=== PATIENT | female | born 1975 | race African-American/Black ===

== ENCOUNTER 2017-03-18 23:40 | Emergency (ER) | payer OTHER ==
[~2017-03-18] VITALS: Ht 165.1 cm; Wt 104.4 kg
[~2017-03-18 23:40] MED LIST: CLINDAMYCIN HC300 MG PO; DOXYCYCLINE HY100 MG PO; Motrin PO; NOHOMEMEDS; ROBITUSSIN AC,T10 ML PO; XANAX0.5 MG PO
[2017-03-19 00:15] LABS: HEMATOCRIT 43.3 % (36.0-46.0); MCH 30.7 PG (29.0-34.0); MCHC 35.1 G/DL (30.0-36.0); MCV 87.5 FL (83-99); MEAN PLAT.VOLUME 10.3 uM^3 (9.5-12.4); PLATELET COUNT 306 K/uL (156-360); RBC DIS.WIDTH-SD 41.4 % (39-53); RED BLOOD COUNT 4.95 M/uL (3.80-5.20); WHITE BLOOD COUNT 5.8 K/uL (4.1-10.2)
[2017-03-19 00:23] LABS: CHLORIDE 107 mEq/L (99-109); POTASSIUM 3.3 mEq/L (3.7-5.4); SODIUM 142 mEq/L (136-147)
[2017-03-19 00:25] LABS: GLUCOSE 95 mg/dL (70-99)
[2017-03-19 00:27] LABS: ANION GAP 20 MEQ/L (2-14)
[2017-03-19 00:29] LABS: GFR ESTIMATE (CALCULATED) > 59 mL/min/
[2017-03-19 00:30] LABS: UREA NITROGEN (BUN) 4 mg/dL (9-23)
[2017-03-19 00:36] LABS: TROP-I INTERPRETATION NEGATIVE; TROPONIN-I < 0.01 ng/mL (0.0-0.30)
[2017-03-19 03:17] LABS: D-DIMER ELISA < 150.00 ng/mLDDU (<230)
[2017-03-19 03:29] LABS: TROP-I INTERPRETATION NEGATIVE; TROPONIN-I < 0.01 ng/mL (0.0-0.30)
[2017-03-19 04:08] VITALS: BP 138/80
== END 2017-03-19 04:08 | disposition home or self-care (01) ==
LOC: EME 23:40
PROVIDERS: Emergency Medicine
DX: R07.9 Chest pain, unspecified (principal); F17.200 Nicotine dependence, unspecified, uncomplicated
CPT/HCPCS: 71020; 80048; 84484; 85027; 85379; 93005; 99281; 99284

== ENCOUNTER 2017-06-04 07:52 | Emergency (ER) | payer OTHER ==
[~2017-06-04] VITALS: Ht 165.1 cm; Wt 104.5 kg
[2017-06-04 08:42] LABS: BASOPHIL (%) 0.4 % (0-1); EOSINOPHIL (%) 1.3 % (0-5); EOSINOPHIL COUNT 0.1 K/uL (0-0.3); HEMATOCRIT 41.6 % (36.0-46.0); HEMOGLOBIN 14.4 G/DL (11.9-15.5); IMMATURE GRANULOCYTE (%) 0.2 % (0.0-0.7); LYMPHOCYTE (%) 39.4 % (15-42); LYMPHOCYTE COUNT 1.8 K/uL (1.0-2.8); MCH 30.9 PG (29.0-34.0); MCHC 34.6 G/DL (30.0-36.0); MCV 89.3 FL (83-99); MONOCYTE COUNT 0.4 K/uL (0-0.8); NEUTROPHIL (%) 50.7 % (45-76); NEUTROPHIL COUNT 2.4 K/uL (1.8-6.4); PLATELET COUNT 304 K/uL (156-360); RBC DIS.WIDTH-CV 12.7 % (11.8-14.6); RBC DIS.WIDTH-SD 41.8 % (39-53); RED BLOOD COUNT 4.66 M/uL (3.80-5.20); WHITE BLOOD COUNT 4.6 K/uL (4.1-10.2)
[2017-06-04 08:50] LABS: INTER. NORMALIZED RATIO 0.9
[2017-06-04 08:52] LABS: D-DIMER ELISA < 150.00 ng/mLDDU (<230)
[2017-06-04 09:02] LABS: CHLORIDE 106 mEq/L (99-109); POTASSIUM 3.6 mEq/L (3.7-5.4); SODIUM 138 mEq/L (136-147); TROP-I INTERPRETATION NEGATIVE; TROPONIN-I < 0.01 ng/mL (0.0-0.30)
[2017-06-04 09:03] LABS: GLUCOSE 91 mg/dL (70-99)
[2017-06-04 09:07] LABS: CREATININE 0.7 mg/dL (0.6-1.3); GFR ESTIMATE (CALCULATED) > 59 mL/min/
[2017-06-04 09:08] LABS: UREA NITROGEN (BUN) 9 mg/dL (9-23)
[2017-06-04 11:10] LABS: TROP-I INTERPRETATION NEGATIVE; TROPONIN-I < 0.01 ng/mL (0.0-0.30)
[2017-06-04] MEDS ORDERED: XANAX0.5 MG PO (11:39)
[2017-06-04] MEDS ORDERED: MOTRIN800 MG PO (11:39)
[2017-06-04 12:08] VITALS: BP 140/90
== END 2017-06-04 12:15 | disposition home or self-care (01) ==
LOC: EME 07:52
PROVIDERS: Emergency Medicine
DX: R07.89 Other chest pain (principal); F41.9 Anxiety disorder, unspecified; F17.200 Nicotine dependence, unspecified, uncomplicated
CPT/HCPCS: 71045; 80048; 84484; 85025; 85379; 85610; 85730; 93005

== ENCOUNTER 2017-06-28 14:50 | Emergency (ER) | payer OTHER ==
[~2017-06-28] VITALS: Ht 165.1 cm; Wt 103.4 kg
[~2017-06-28 14:50] MED LIST changes: +MOTRIN800 MG PO
[2017-06-28 15:32] LABS: BASOPHIL (%) 0.5 % (0-1); EOSINOPHIL (%) 0.7 % (0-5); HEMATOCRIT 43.8 % (36.0-46.0); HEMOGLOBIN 15.2 G/DL (11.9-15.5); IMMATURE GRANULOCYTE (%) 0.5 % (0.0-0.7); MCH 30.6 PG (29.0-34.0); MCHC 34.7 G/DL (30.0-36.0); MCV 88.1 FL (83-99); MONOCYTE COUNT 0.4 K/uL (0-0.8); NEUTROPHIL (%) 73.3 % (45-76); NEUTROPHIL COUNT 4.2 K/uL (1.8-6.4); PLATELET COUNT 304 K/uL (156-360); RBC DIS.WIDTH-CV 12.9 % (11.8-14.6); RBC DIS.WIDTH-SD 41.6 % (39-53); RED BLOOD COUNT 4.97 M/uL (3.80-5.20); WHITE BLOOD COUNT 5.7 K/uL (4.1-10.2)
[2017-06-28 15:40] LABS: ALBUMIN 4.2 g/dL (3.2-4.8); CHLORIDE 103 mEq/L (99-109); POTASSIUM 3.5 mEq/L (3.7-5.4); SODIUM 140 mEq/L (136-147)
[2017-06-28 15:43] LABS: GLUCOSE 119 mg/dL (70-99); TOTAL PROTEIN 6.9 g/dL (6.4-8.3)
[2017-06-28 15:43] LABS: APPEARANCE CLOUDY ((CLEAR)); BILIRUBIN NEGATIVE; BLOOD LARGE; GLUCOSE (STRIP) NEGATIVE; KETONES 80; LEUKOCYTES TRACE; NITRITE NEGATIVE; PROTEIN (STRIP) >=500; SPECIFIC GRAVITY 1.029 (1.000-1.030)
[2017-06-28 15:45] LABS: TOTAL BILIRUBIN 0.8 mg/dL (0.0-1.0)
[2017-06-28 15:46] LABS: COLOR RED ((YELLOW))
[2017-06-28 15:46] LABS: ALKALINE PHOSPHATASE 64 IU/L (3-129); CREATININE 0.7 mg/dL (0.6-1.3); GFR ESTIMATE (CALCULATED) > 59 mL/min/
[2017-06-28 15:47] LABS: UREA NITROGEN (BUN) 12 mg/dL (9-23)
[2017-06-28 15:48] LABS: AST (GOT) 49 IU/L (2-34)
[2017-06-28 15:49] LABS: ALT (GPT) 64 IU/L (3-49)
[2017-06-28 15:50] LABS: LIPASE 46 U/L (1.0-51.0)
[2017-06-28 15:56] LABS: QUANTITATIVE HCG < 4.0 MIU/ML
[2017-06-28 16:01] LABS: MUCUS NONE SEEN /LPF; RED BLOOD CELLS TNTC /HPF (0-5); WHITE BLOOD CELLS RARE /HPF (0-5)
[2017-06-28 16:02] LABS: BACTERIA NONE SEEN /HPF; UCUL ADDED? YES
[2017-06-28] MEDS ORDERED: ZOFRAN4 MG PO (17:26)
[2017-06-28] MEDS ORDERED: OMEPRAZOLE40 M1 PO (17:26)
[2017-06-28 17:45] VITALS: BP 148/89
== END 2017-06-28 17:46 | disposition home or self-care (01) ==
LOC: EME 14:50
PROVIDERS: Physician Assistant
DX: K29.70 Gastritis, unspecified, without bleeding (principal); K57.90 Diverticulosis of intestine, part unspecified, without perforation or abscess without bleeding; K76.0 Fatty (change of) liver, not elsewhere classified; M51.37 Other intervertebral disc degeneration, lumbosacral region; M24.28 Disorder of ligament, vertebrae; M48.07 Spinal stenosis, lumbosacral region; M51.27 Other intervertebral disc displacement, lumbosacral region; M47.897 Other spondylosis, lumbosacral region; F41.9 Anxiety disorder, unspecified; F17.200 Nicotine dependence, unspecified, uncomplicated
CPT/HCPCS: 74177; 80053; 81003; 83690; 84702; 85025; 87086; 99281; 99285; C9113; J2405; J7030

== ENCOUNTER 2017-08-30 19:30 | Emergency (ER) | payer SELFPAY ==
[~2017-08-30] VITALS: Ht 165.1 cm; Wt 107.6 kg
[~2017-08-30 19:30] MED LIST changes: +OMEPRAZOLE40 M1 PO; +ZOFRAN4 MG PO
[2017-08-30 20:12] LABS: HEMATOCRIT 39.7 % (36.0-46.0); MCH 30.8 PG (29.0-34.0); MCHC 35.3 G/DL (30.0-36.0); MCV 87.3 FL (83-99); PLATELET COUNT 280 K/uL (156-360); RBC DIS.WIDTH-SD 41.1 % (39-53); RED BLOOD COUNT 4.55 M/uL (3.80-5.20); WHITE BLOOD COUNT 4.8 K/uL (4.1-10.2)
[2017-08-30 20:24] LABS: CHLORIDE 107 mEq/L (99-109); POTASSIUM 3.6 mEq/L (3.7-5.4); SODIUM 141 mEq/L (136-147)
[2017-08-30 20:25] LABS: GLUCOSE 92 mg/dL (70-99)
[2017-08-30 20:29] LABS: CREATININE 0.7 mg/dL (0.6-1.3); GFR ESTIMATE (CALCULATED) > 59 mL/min/
[2017-08-30 20:30] LABS: UREA NITROGEN (BUN) 6 mg/dL (9-23)
[2017-08-30 20:33] LABS: TROP-I INTERPRETATION NEGATIVE; TROPONIN-I < 0.01 ng/mL (0.0-0.30)
[2017-08-31 00:13] LABS: TROP-I INTERPRETATION NEGATIVE; TROPONIN-I 0.01 ng/mL (0.0-0.30)
[2017-08-31] MEDS ORDERED: ZANTAC300 MG PO (00:31)
[2017-08-31 01:03] VITALS: BP 125/88
== END 2017-08-31 01:08 | disposition home or self-care (01) ==
LOC: EME 19:30
PROVIDERS: Physician Assistant
DX: R07.89 Other chest pain (principal); K21.9 Gastro-esophageal reflux disease without esophagitis; F41.9 Anxiety disorder, unspecified; F17.200 Nicotine dependence, unspecified, uncomplicated
CPT/HCPCS: 71046; 80048; 84484; 85027; 93005; 99281; 99283